=== PATIENT | male | born 1975 | race Caucasian/White ===

== ENCOUNTER 2023-04-09 02:19 | Emergency (ER) | payer BC, OTHER ==
[2023-04-09 02:27] VITALS: BP 156/98; PULSE 68; RESP 18; TEMP 98.4; BMI 31.6
[2023-04-09] MEDS ORDERED: AMOXICILLIN 500 MG CAPSULE (FP) PO ONE (03:13)
[2023-04-09] MEDS ORDERED: AMOX TR/POT CLAV 875MG/125MG TABLETS (FP) ONE (03:17)
[2023-04-09] MEDS ORDERED: IBUPROFEN 600 MG TABLET (FP) PO ONE (03:45)
== END 2023-04-09 03:40 | disposition home or self-care (01) ==
LOC: JER 02:19
DX: H66.91 Otitis media, unspecified, right ear (principal); H92.01 Otalgia, right ear; R05.9 Cough, unspecified; Z20.822 Contact with and (suspected) exposure to COVID-19
CPT/HCPCS: 0241U-QW; 99283-25

== ENCOUNTER 2023-05-19 00:05 | Observation (INO) | payer BC, OTHER ==
[2023-05-19 00:26] VITALS: BMI 31.6
[2023-05-19 01:21] LABS: BASO % 1.4 % (0-2.0); EOS % 1.1 % (0-4.5); HEMATOCRIT 19.8 % (35.4-49); MCHC 29.6 g/dl (32.0-35.9); MEAN CELL VOLUME 65.5 fl (80-96); MEAN PLT VOLUME 6.8 fl (7.5-11.1); MONO % 9.8 % (3.8-10.2); NEUT % 70.7 % (42.8-82.8); PLATELET COUNT 499 10^3/uL (134-434); RBC 3.03 M/mm3 (4.00-5.60); RDW 18.7 % (11.9-15.9); RETICULOCYTES 3.56 % (0.5-1.5); WHITE BLOOD COUNT 6.7 K/mm3 (4.0-10.0)
[2023-05-19 01:25] LABS: MCH 19.4 pg (25.7-33.7)
[2023-05-19 01:27] LABS: HEMOGLOBIN 5.9 GM/dL (11.7-16.9); INR 1.2 (0.83-1.09); PROTHROMBIN TIME (PATIENT) 13.9 SEC (9.7-13.0)
[2023-05-19 01:30] LABS: ACTIVATED PTT 33.9 SECONDS (25.2-36.5)
[2023-05-19 01:47] LABS: POTASSIUM 3.8 mmol/L (3.5-5.1)
[2023-05-19 01:50] LABS: ALBUMIN 3.4 g/dl (3.4-5.0); BLOOD UREA NITROGEN 17.6 mg/dL (7-18); CALCIUM 8.2 mg/dL (8.5-10.1)
[2023-05-19 01:53] LABS: CREATININE 1.1 mg/dL (0.55-1.3)
[2023-05-19 01:54] LABS: BILIRUBIN,TOTAL 0.6 mg/dL (0.2-1)
[2023-05-19 01:55] LABS: TOT PROT 6.6 g/dl (6.4-8.2)
[2023-05-19 03:27] LABS: ANISOCYTOSIS 2+; MACROCYTOSIS 0; ROULEAU 1+
[2023-05-19] MEDS ORDERED: MAGNESIUM CITRATE 300 ML BOTTLE PO ONE (04:59)
[2023-05-19] MEDS ORDERED: HYDROCORTISONE ACETATE 25 MG/SUPP.RECT RC ONE (05:01)
[2023-05-19] MEDS ORDERED: SODIUM CHLORIDE 1,000 ML IV STA (05:03)
[2023-05-19] MEDS ORDERED: ALBUTEROL SO4 HFA INHALER IH PRN (05:56)
[2023-05-19] MEDS: PANTOPRAZOLE SODIUM 40 MG VIAL IVPUSH SCH ×2 (09:58→21:18)
[2023-05-19] MEDS ORDERED: POLYETHYLENE GLYCOL (HEALTHYLAX) 3350 17 GM PACKET PO SCH (10:00)
[2023-05-19] MEDS ORDERED: DOXYCYCLINE HYCLATE 100 MG CAPSULE PO SCH (10:00)
[2023-05-19 10:02] LABS: MCH 20.2 pg (25.7-33.7); MCHC 30.1 g/dl (32.0-35.9); MEAN CELL VOLUME 67.2 fl (80-96); MEAN PLT VOLUME 7.1 fl (7.5-11.1); PLATELET COUNT 407 10^3/uL (134-434); RBC 3.28 M/mm3 (4.00-5.60); RDW 19.7 % (11.9-15.9); WHITE BLOOD COUNT 5.9 K/mm3 (4.0-10.0)
[2023-05-19 10:14] LABS: HEMOGLOBIN 6.6 GM/dL (11.7-16.9)
[2023-05-19] MEDS ORDERED: FUROSEMIDE 40 MG/4 ML INJECTABLE VIAL IVPUSH ONE (10:16)
[2023-05-19 10:21] LABS: CALCIUM 8.5 mg/dL (8.5-10.1)
[2023-05-19 10:22] LABS: ALBUMIN 3.3 g/dl (3.4-5.0); BLOOD UREA NITROGEN 12.9 mg/dL (7-18); MAGNESIUM 2.4 mg/dL (1.8-2.4)
[2023-05-19] MEDS: HYDROCORTISONE 2.5% TOPICAL CREAM 30 GM TUBE RC SCH ×2 (10:24→21:18)
[2023-05-19 10:25] LABS: CREATININE 0.9 mg/dL (0.55-1.3); PHOSPHOROUS 3.6 mg/dL (2.5-4.9)
[2023-05-19 10:26] LABS: TOT PROT 6.1 g/dl (6.4-8.2)
[2023-05-19 10:27] LABS: BILIRUBIN,TOTAL 0.7 mg/dL (0.2-1)
[2023-05-19 15:14] VITALS: RESP 18
[2023-05-19 16:16] LABS: HEMATOCRIT 26.4 % (35.4-49); HEMOGLOBIN 7.9 GM/dL (11.7-16.9); MCH 20.5 pg (25.7-33.7); MCHC 30.1 g/dl (32.0-35.9); MEAN CELL VOLUME 68.3 fl (80-96); MEAN PLT VOLUME 7.2 fl (7.5-11.1); PLATELET COUNT 434 10^3/uL (134-434); RBC 3.86 M/mm3 (4.00-5.60); RDW 20.8 % (11.9-15.9)
[2023-05-19] MEDS: BISMUTH SUBSALICYLATE 262 MG/15 ML BTL PO SCH (18:32)
[2023-05-19] MEDS: MELATONIN 5 MG TABLETS PO PRN (21:18)
[2023-05-19] MEDS: MONTELUKAST NA 10 MG TABLET PO SCH (21:19)
[2023-05-19] MEDS ORDERED: SENNOSIDES 8.6MG TABLET (FP) PO SCH (22:00)
[2023-05-20 07:47] LABS: BASO % 0.9 % (0-2.0); EOS % 2.7 % (0-4.5); HEMATOCRIT 24.4 % (35.4-49); HEMOGLOBIN 7.5 GM/dL (11.7-16.9); LYMPH % 12.6 % (8-40); MCHC 30.6 g/dl (32.0-35.9); MEAN CELL VOLUME 68.8 fl (80-96); MEAN PLT VOLUME 7.4 fl (7.5-11.1); MONO % 9.9 % (3.8-10.2); NEUT % 73.9 % (42.8-82.8); PLATELET COUNT 412 10^3/uL (134-434); RBC 3.55 M/mm3 (4.00-5.60); RDW 20.2 % (11.9-15.9); WHITE BLOOD COUNT 7.9 K/mm3 (4.0-10.0)
[2023-05-20 08:06] LABS: CALCIUM 8.6 mg/dL (8.5-10.1)
[2023-05-20 08:08] LABS: BLOOD UREA NITROGEN 10.7 mg/dL (7-18)
[2023-05-20 08:10] LABS: CREATININE 1.1 mg/dL (0.55-1.3)
[2023-05-20] MEDS ORDERED: IRON SUCROSE INJECTION 200 MG in SODIUM CHLORIDE 100 ML IVPB ONE (09:30)
[2023-05-20] MEDS: PANTOPRAZOLE SODIUM 40 MG VIAL IVPUSH SCH ×2 (12:06→21:36)
[2023-05-20] MEDS: HYDROCORTISONE 2.5% TOPICAL CREAM 30 GM TUBE RC SCH ×2 (12:07→21:37)
[2023-05-20] MEDS: BISMUTH SUBSALICYLATE 262 MG/15 ML BTL PO SCH (14:38)
[2023-05-20] MEDS: ALBUTEROL SO4 0.5 % INH SOLN 2.5 MG/0.5 ML VIAL.NEB. NEB PRN ×2 (16:37→19:25)
[2023-05-20] MEDS: MELATONIN 5 MG TABLETS PO PRN (21:35)
[2023-05-20] MEDS: MONTELUKAST NA 10 MG TABLET PO SCH (21:36)
[2023-05-20] MEDS ORDERED: ACETAMINOPHEN 325 MG TABLET (FP) PO ONE (23:52)
[2023-05-21] MEDS ORDERED: IRON SUCROSE INJECTION 200 MG in SODIUM CHLORIDE 100 ML IVPB ONE (09:00)
[2023-05-21 09:31] LABS: BASO % 1.1 % (0-2.0); EOS % 5.7 % (0-4.5); HEMATOCRIT 25.1 % (35.4-49); HEMOGLOBIN 7.7 GM/dL (11.7-16.9); MCH 21.1 pg (25.7-33.7); MCHC 30.5 g/dl (32.0-35.9); MEAN PLT VOLUME 7.4 fl (7.5-11.1); MONO % 12.5 % (3.8-10.2); NEUT % 61.7 % (42.8-82.8); PLATELET COUNT 464 10^3/uL (134-434); RBC 3.64 M/mm3 (4.00-5.60); RDW 20.8 % (11.9-15.9); WHITE BLOOD COUNT 6.2 K/mm3 (4.0-10.0)
[2023-05-21 10:09] LABS: CALCIUM 8.7 mg/dL (8.5-10.1)
[2023-05-21 10:10] LABS: BLOOD UREA NITROGEN 9.4 mg/dL (7-18)
[2023-05-21 10:14] LABS: CREATININE 1.1 mg/dL (0.55-1.3)
[2023-05-21] MEDS: PANTOPRAZOLE SODIUM 40 MG VIAL IVPUSH SCH (10:34)
[2023-05-21] MEDS: HYDROCORTISONE 2.5% TOPICAL CREAM 30 GM TUBE RC SCH (10:35)
[2023-05-21] MEDS: BISMUTH SUBSALICYLATE 262 MG/15 ML BTL PO SCH (10:35)
[2023-05-21 12:41] VITALS: BP 126/72; PULSE 74; TEMP 98.4
== END 2023-05-21 13:54 | disposition home or self-care (01) ==
LOC: JER 00:05 → JERBED 02:41 → J7W 05:28
PROVIDERS: ADMIT Internal Medicine; ATTEND Nurse Practitioner
PROC: 30233N1 Transfusion of Nonautologous Red Blood Cells into Peripheral Vein, Percutaneous Approach (ICD-10-PCS; principal; 2023-05-19)
PROC: 3E0F7GC Introduction of Other Therapeutic Substance into Respiratory Tract, Via Natural or Artificial Opening (ICD-10-PCS; 2023-05-19)
PROC: 3E033GC Introduction of Other Therapeutic Substance into Peripheral Vein, Percutaneous Approach (ICD-10-PCS; 2023-05-19)
PROC: 3E0337Z Introduction of Electrolytic and Water Balance Substance into Peripheral Vein, Percutaneous Approach (ICD-10-PCS; 2023-05-19)
DX: K92.1 Melena (principal); K64.8 Other hemorrhoids; K59.00 Constipation, unspecified; D64.9 Anemia, unspecified; G47.30 Sleep apnea, unspecified; J45.909 Unspecified asthma, uncomplicated; K58.9 Irritable bowel syndrome, unspecified; D50.0 Iron deficiency anemia secondary to blood loss (chronic)
CPT/HCPCS: 0241U-QW; 36415; 36430; 74174-TC; 80048; 80053; 82272; 82728; 83516; 83540; 83550; 83735; 84100; 85025; 85027; 85045; 85610; 85730; 86140; 86255; 86671; 86850; 86900; 86901; 86922; 87045; 87046; 87205; 87324; 87449; 93005; 93010; 94640; 96365; 96367; 96375; 99285-25; G0378; J1756; P9038; P9058

== ENCOUNTER 2023-05-23 20:37 | Observation (INO) | payer BC, OTHER ==
[2023-05-23 20:46] VITALS: RESP 18
[2023-05-23 21:38] LABS: BASO % 1.1 % (0-2.0); EOS % 3.8 % (0-4.5); HEMATOCRIT 25.9 % (35.4-49); HEMOGLOBIN 7.8 GM/dL (11.7-16.9); LYMPH % 15.5 % (8-40); MCH 21.4 pg (25.7-33.7); MEAN CELL VOLUME 71.3 fl (80-96); MEAN PLT VOLUME 7.1 fl (7.5-11.1); MONO % 8.7 % (3.8-10.2); NEUT % 70.9 % (42.8-82.8); PLATELET COUNT 536 10^3/uL (134-434); RBC 3.63 M/mm3 (4.00-5.60); RDW 21.2 % (11.9-15.9); WHITE BLOOD COUNT 7.4 K/mm3 (4.0-10.0)
[2023-05-23 21:58] LABS: POTASSIUM 4.1 mmol/L (3.5-5.1)
[2023-05-23 22:00] LABS: CALCIUM 8.1 mg/dL (8.5-10.1)
[2023-05-23 22:01] LABS: ALBUMIN 3.4 g/dl (3.4-5.0); BLOOD UREA NITROGEN 8.9 mg/dL (7-18)
[2023-05-23 22:04] LABS: ANISOCYTOSIS 3+; CREATININE 1.2 mg/dL (0.55-1.3); MACROCYTOSIS 0; OVALOCYTE 1+; TARGET CELLS 1+; TEAR DROP CELLS 1+
[2023-05-23 22:05] LABS: BILIRUBIN,TOTAL 0.6 mg/dL (0.2-1)
[2023-05-23 22:06] LABS: TOT PROT 6.4 g/dl (6.4-8.2)
[2023-05-24] MEDS ORDERED: EPINEPHrine 1:1,000 0.3 MG/0.3 ML SYR IM ONE (01:18)
[2023-05-24] MEDS ORDERED: FAMOTIDINE 10 MG TABLET PO ONE (01:29)
[2023-05-24] MEDS ORDERED: diphenhydrAMINE HCL 25 MG CAPSULE (FP) PO ONE ×2 (01:29→01:39)
[2023-05-24] MEDS ORDERED: FAMOTIDINE 20 MG TABLET ONE (01:40)
[2023-05-24 02:22] LABS: INR 1.14 (0.83-1.09); PROTHROMBIN TIME (PATIENT) 13.2 SEC (9.7-13.0)
[2023-05-24 02:25] LABS: ACTIVATED PTT 37.9 SECONDS (25.2-36.5)
[2023-05-24] MEDS ORDERED: diphenhydrAMINE HCL 25 MG CAPSULE (FP) PO PRN ×2 (03:06→04:33)
[2023-05-24 03:09] VITALS: BMI 31.9
[2023-05-24] MEDS ORDERED: ALBUTEROL SO4 HFA INHALER IH PRN (05:00)
[2023-05-24] MEDS ORDERED: PANTOPRAZOLE 40 MG TABLET PO SCH (10:00)
[2023-05-24 10:42] LABS: HEMATOCRIT 27.8 % (35.4-49); HEMOGLOBIN 8.4 GM/dL (11.7-16.9); MCH 21.6 pg (25.7-33.7); MCHC 30.1 g/dl (32.0-35.9); MEAN CELL VOLUME 71.6 fl (80-96); MEAN PLT VOLUME 7.1 fl (7.5-11.1); PLATELET COUNT 541 10^3/uL (134-434); RBC 3.88 M/mm3 (4.00-5.60); RDW 22.1 % (11.9-15.9); WHITE BLOOD COUNT 5.7 K/mm3 (4.0-10.0)
[2023-05-24 11:07] LABS: POTASSIUM 4.1 mmol/L (3.5-5.1)
[2023-05-24 11:09] LABS: CALCIUM 8.5 mg/dL (8.5-10.1)
[2023-05-24 11:10] LABS: ALBUMIN 3.6 g/dl (3.4-5.0); BLOOD UREA NITROGEN 6.6 mg/dL (7-18); MAGNESIUM 2.8 mg/dL (1.8-2.4)
[2023-05-24 11:13] LABS: CREATININE 1.1 mg/dL (0.55-1.3); PHOSPHOROUS 3.2 mg/dL (2.5-4.9)
[2023-05-24 11:15] LABS: BILIRUBIN,TOTAL 0.7 mg/dL (0.2-1); TOT PROT 6.8 g/dl (6.4-8.2)
[2023-05-24 15:04] VITALS: BP 137/82; PULSE 73; TEMP 98.9
== END 2023-05-24 15:04 | disposition home or self-care (01) ==
LOC: JER 20:37 → JERBED 22:12 → J6S 05-24 03:00
PROVIDERS: ADMIT Internal Medicine; ATTEND Internal Medicine
DX: K62.5 Hemorrhage of anus and rectum (principal); K64.8 Other hemorrhoids; D64.89 Other specified anemias; D75.839 Thrombocytosis, unspecified; E72.20 Disorder of urea cycle metabolism, unspecified; E83.41 Hypermagnesemia; G47.33 Obstructive sleep apnea (adult) (pediatric); J45.909 Unspecified asthma, uncomplicated; E55.9 Vitamin D deficiency, unspecified; D51.9 Vitamin B12 deficiency anemia, unspecified
CPT/HCPCS: 36415; 80053; 82272; 83735; 84100; 85025; 85027; 85610; 85730; 86850; 86900; 86901; 93005; 93010; 99285-25; G0378